=== PATIENT | male | born 1990 | race African-American/Black ===

== ENCOUNTER 2017-04-17 18:01 | Emergency (ER) | payer BC, OTHER ==
[2017-04-17] MEDS ORDERED: ONDANSETRON 4 MG TAB.RAPDIS PO ONE (20:25)
[2017-04-17] MEDS ORDERED: ACETAMINOPHEN 325 MG TABLET PO ONE (20:25)
--- NOTE | 2017-04-17 20:29 | ER Document Report ---
ED Medical Screen (RME) - General Chief Complaint: Fainting Stated Complaint: NAUSEA/DIZZY Time Seen by Provider: 04/17/17 20:24 Notes: 26 year old obese male comes emergency department for chief complaint of passing out last night and hitting his head, he states afterwards he drinks 2 beers, smokes marijuana, but could not get a ride until now. She reports headache, dizziness, denies focal numbness or weakness, denies neck pain, denies incontinence. He has no diagnosed medical history. TRAVEL OUTSIDE OF THE [place] IN LAST 30 DAYS: No - Related Data Allergies/Adverse Reactions: No Known Allergies Allergy (Verified 04/17/17 18:39) Past Medical History - Social History Chew tobacco use (# tins/day): No Frequency of alcohol use: yesterday Drug Abuse: Marijuana Renal/ Medical History: Denies: Hx Peritoneal Dialysis Surgical Hx: Negative - Immunizations Immunizations up to date: No Hx Diphtheria, Pertussis, Tetanus Vaccination: Yes Physical Exam - Vital signs Vitals: Temp Pulse Resp BP Pulse Ox 98.0 F 98 20 170/100 H 97 04/17/17 18:40 04/17/17 18:40 04/17/17 18:40 04/17/17 18:40 04/17/17 18:40 Course - Re-evaluation Re-evalutation: Morbidly obese male, hypertensive, reported head injury with alcohol use and headache with dizziness, does not have any focal neurological deficits on examination. He reports he currently feels nauseated. - Vital Signs Vital signs: Temp Pulse Resp BP Pulse Ox 98.0 F 98 20 170/100 H 97 04/17/17 18:40 04/17/17 18:40 04/17/17 18:40 04/17/17 18:40 04/17/17 18:40
[2017-04-17 21:16] LABS: ABSOLUTE EOSINOPHILS # (AUTO) 0.2 10^3/uL (0.0-0.6); ABSOLUTE LYMPHOCYTES (AUTO) 2.7 10^3/uL (0.5-4.7); ABSOLUTE MONOCYTES (AUTO) 0.6 10^3/uL (0.1-1.4); ABSOLUTE NEUT (AUTO) 4.7 10^3/uL (1.7-8.2); BASOPHILS % (AUTO) 0.5 % (0-2); EOSINOPHILS % (AUTO) 2.7 % (0-6); HEMATOCRIT 43.5 % (37.9-51.0); HEMOGLOBIN 14.2 g/dL (13.5-17.0); HGB HCT DIFFERENCE -0.9; LYMPHOCYTES % (AUTO) 32.5 % (13-45); MEAN CORPUSCULAR HGB CONC 32.6 g/dL (32.0-36.0); MEAN CORPUSCULAR VOLUME 86 fl (80-97); MONOCYTES % (AUTO) 7.3 % (3-13); RED BLOOD COUNT 5.06 10^6/uL (4.35-5.55); RED CELL DISTRIBUTION WIDTH 14.4 % (11.5-14.0); WHITE BLOOD COUNT 8.3 10^3/uL (4.0-10.5)
[2017-04-17 21:34] LABS: URINE BARBITURATES SCREEN NEGATIVE; URINE METHADONE SCREEN NEGATIVE; URINE OPIATES LOW NEGATIVE; URINE PHENCYCLIDINE SCREEN NEGATIVE
[2017-04-17 21:36] LABS: ANION GAP 14 (5-19); BLOOD UREA NITROGEN 14 mg/dL (7-20); CALCIUM 9.7 mg/dL (8.4-10.2); CARBON DIOXIDE 23 mmol/L (22-30); CHLORIDE 105 mmol/L (98-107); CREATININE RESULT 0.91 mg/dL (0.52-1.25); GLUCOSE 86 mg/dL (75-110); POTASSIUM 4.3 mmol/L (3.6-5.0); SODIUM 142.3 mmol/L (137-145)
--- NOTE | 2017-04-17 21:40 | ER Document Report ---
ED General - General Chief Complaint: Fainting Stated Complaint: NAUSEA/DIZZY Time Seen by Provider: 04/17/17 20:24 Notes: Patient is a 26-year-old morbidly obese male comes emergency department for chief complaint of passing out last night, he states that he was standing leaned up against a freezer because his lower back was aching when he passed out , he states he thinks he hit his head, confirmed by his friend, he states that afterwards he drank a couple of beers, smokes marijuana, tried to calm down. He states he could not get a ride to the hospital to be evaluated until now. Episode happened about 24 hours ago. He states he had a throbbing headache over the top of his head today, felt lightheaded, denies focal numbness or weakness, denies neck pain, denies incontinence. He states other than back spurs he does not have any diagnosed medical history, he denies any family history including hypertension, [place]. TRAVEL OUTSIDE OF THE [place] IN LAST 30 DAYS: No - Related Data Allergies/Adverse Reactions: No Known Allergies Allergy (Verified 04/17/17 18:39) Past Medical History - General Information source: Patient - Social History Smoking Status: Current Some Day Smoker Chew tobacco use (# tins/day): No Frequency of alcohol use: yesterday Drug Abuse: Marijuana Lives with: Friend Family History: Reviewed & Not Pertinent - Medical History Medical History: Negative Renal/ Medical History: Denies: Hx Peritoneal Dialysis Surgical Hx: Negative - Immunizations Immunizations up to date: No Hx Diphtheria, Pertussis, Tetanus Vaccination: Yes Review of Systems - Review of Systems Constitutional: No symptoms reported EENT: No symptoms reported Cardiovascular: No symptoms reported Respiratory: No symptoms reported Gastrointestinal: No symptoms reported Genitourinary: No symptoms reported Male Genitourinary: No symptoms reported Musculoskeletal: See HPI Skin: No symptoms reported Hematologic/Lymphatic: No symptoms reported Neurological/Psychological: See HPI Physical Exam - Vital signs Vitals: Temp Pulse Resp BP Pulse Ox 98.0 F 98 20 170/100 H 97 04/17/17 18:40 04/17/17 18:40 04/17/17 18:40 04/17/17 18:40 04/17/17 18:40 Interpretation: Normal - General General appearance: Appears well, Alert In distress: None - Patient does not appear to be in any distress; patient is tall and very large - HEENT Head: Normocephalic, Atraumatic Eyes: Normal Conjunctiva: Normal Extraocular movements intact: Yes Eyelashes: Normal Pupils: PERRL Ears: Normal Sinus: Normal Nasal: Normal Mouth/Lips: Normal Mucous membranes: Normal Pharynx: Normal Neck: Normal - Respiratory Respiratory status: No respiratory distress Chest status: Nontender Breath sounds: Normal. No: Decreased air movement, Wheezing Chest palpation: Normal - Cardiovascular Rhythm: Regular. No: Tachycardia Heart sounds: Normal auscultation, S1 appreciated, S2 appreciated Murmur: No - Abdominal Inspection: Normal Distension: No distension Bowel sounds: Normal Tenderness: Nontender. No: Tender, Guarding Organomegaly: No organomegaly - Back Back: Normal, Nontender. No: Tender, Vertebra tenderness - no cervical tenderness, normal back exam, no saddle anesthesia, normal UE and LE ROM, normal distal n/v exam - Extremities General upper extremity: Normal inspection, Nontender, Normal strength, Normal temperature General lower extremity: Normal inspection, Nontender, Normal strength, Normal temperature - Neurological Neuro grossly intact: Yes Cognition: Normal Orientation: AAOx4 [place] Coma Scale Eye Opening: Spontaneous Madhavi Coma Scale Verbal: Oriented [place] Coma Scale Motor: Obeys Commands [place] Coma Scale Total: 15 Speech: Normal Cranial nerves: Normal Cerebellar coordination: Normal Motor strength normal: LUE, RUE, LLE, RLE Additional motor exam normals: Equal photographer helper Sensory: Normal - Psychological Associated symptoms: Normal affect, Normal mood - Skin Skin Temperature: Warm Skin Moisture: Dry Skin Color: Normal Course - Re-evaluation Re-evalutation: No neurological deficits. On reexamination patient states headache is improved but not resolved after Zofran and Tylenol. CAT scan unable to be performed because table limit is 450 pounds, MRI table limit is 350 pounds. Patient is 501 pounds. Examination patient is sleeping, easily aroused, states his headache is almost completely resolved and he feels much better. CBC, chemistry unremarkable, drug screen shows the marijuana which patient already spoke of and no other abnormalities. EKG with no T-wave inversions in consecutive leads, ST segment changes, arrhythmia, or other acute abnormality noted. Manual blood pressure rechecked, blood pressure trending down into the 120s over 80s. Headache has resolved. Patient states he has never been told his blood pressure was elevated and he has never required treatment for this. Because of patient's symptoms of syncope, morbid obesity, and syncope within the past month in addition to this, I recommended patient have an echocardiogram with close follow-up with cardiology, patient states that he has insurance and he will follow-up with the referral, patient also referred to primary care for management and monitoring of his blood pressure, also discussed return precautions in detail including return of headache, chest pain , passing out, or any other concerning symptoms. Patient states understanding and agreement. Patient was discussed with Dr. Greene. - Vital Signs Vital signs: Temp Pulse Resp BP Pulse Ox 97.9 F 98 17 128/92 H 99 04/18/17 02:47 04/17/17 18:40 04/18/17 02:00 04/18/17 01:30 04/18/17 02:00 - Laboratory Result Diagrams: 04/17/17 20:50 04/17/17 20:50 Laboratory results interpreted by me: 04/17/17 20:50 RDW 14.4 H Discharge - Discharge Clinical Impression: Headache Qualifiers: Headache type: unspecified Headache chronicity pattern: acute headache Intractability: not intractable Qualified Code(s): R51 - Headache Syncopal episodes Qualifiers: Syncope type: unspecified Qualified Code(s): R55 - Syncope and collapse Condition: Stable Disposition: HOME, SELF-CARE Additional Instructions: Workup and evaluation today does not show any concerning abnormality, however because of your symptoms you may need an echocardiogram. Begin watching foods and exercise to start losing weight. Please call the cardiology referral (Dr. Howard) in the morning to set this up. Also follow up with the Primary Care referral. Return to the ED for any concerning or worsening symptoms - chest pain, shortness of breath, returned or worsening headache, or any other concerning symptoms. Forms: Return to Work Referrals: RHIANNON HOWARD MD [ACTIVE STAFF] - Follow up tomorrow SENA BAUGH MD [ACTIVE STAFF] - Follow up in 1 week
[2017-04-17] MEDS ORDERED: DIPHENHYDRAMINE HCL 50 MG/ML VIAL IV ONE (22:31)
[2017-04-18 01:40] VITALS: BP 128/92
--- NOTE | 2017-04-18 08:56 | EKG REPORT ---
SEVERITY:- BORDERLINE ECG - SINUS RHYTHM BORDERLINE T ABNORMALITIES, DIFFUSE LEADS : Confirmed by: Elie Bailey MD 18-Apr-2017 08:55:30
== END 2017-04-18 02:45 | disposition home or self-care (01) ==
LOC: ER 18:01
DX: R55 Syncope and collapse (principal); R51 Headache; R11.0 Nausea; R42 Dizziness and giddiness; F17.200 Nicotine dependence, unspecified, uncomplicated
CPT/HCPCS: 93005; 99284; 96374; 36415; 85025; 80048; 80307; 93010; J1200; S0119

== ENCOUNTER 2017-11-22 14:53 | Emergency (ER) | payer SELFPAY ==
[2017-11-22] MEDS ORDERED: PSEUDOEPHEDRINE HCL 3 MG/1 ML SYRUP 60 ML PO ONE (15:50)
[2017-11-22] MEDS ORDERED: ACETAMINOPHEN 325 MG TABLET PO ONE (15:50)
[2017-11-22] MEDS ORDERED: DIPHENHYDRAMINE HCL 50 MG CAPSULE PO ONE (15:50)
--- NOTE | 2017-11-22 15:50 | ER Document Report ---
HPI - HPI Patient complains to provider of: URI symptoms Pain Level: 3 Context: Patient is a 27 year old male who presents to the ED complaining of sinus drainage, sore throat and cough for one week. He states he took acetaminophen and something from [employer] store without much improvement. He admtis to sinus congestion without purulent drainage, redness or tendnerness, fever. Admits to headache that improves with acetaminophen Past Medical History - Social History Smoking Status: Current Every Day Smoker Family History: Reviewed & Not Pertinent Renal/ Medical History: Denies: Hx Peritoneal Dialysis - Immunizations Immunizations up to date: No Hx Diphtheria, Pertussis, Tetanus Vaccination: Yes Vertical Provider Document - CONSTITUTIONAL Agree With Documented VS: Yes Notes: PHYSICAL EXAM GENERAL: Alert, interacts well. HEAD: Normocephalic, atraumatic. HEENT: NCAT, pale conjunctiva, extraocular movements intact, pupils PERRL. external ear normal, no evidence of external auditory canal tenderness, blood/ drainage, cerumen impaction, TM intact without evidence of effusion, bulging, injection, MMM, Uvula midline. Airway patent. No evidence of tonsillar enlargement, peritonsillar abscess, retropharyngeal abscess. she NECK: Full range of motion. Supple. Trachea midline. LUNGS: Clear to auscultation bilaterally, no wheezes, rales, or rhonchi. No respiratory distress. HEART: Regular rate and rhythm. No murmurs, gallops, or rubs. EXTREMITIES: Moves all 4 extremities spontaneously. No edema, radial and dorsalis pedis pulses 2/4 bilaterally. No cyanosis. NEUROLOGICAL: Alert and oriented x4. Normal speech. PSYCH: Normal affect, normal mood. SKIN: Warm, dry, normal turgor. No rashes or lesions noted. - INFECTION CONTROL TRAVEL OUTSIDE OF THE [place] IN LAST 30 DAYS: No - RESPIRATORY O2 Sat by Pulse Oximetry: 99 Course - Re-evaluation Re-evalutation: 11/22/17 15:48 Presentation is most consistent with a viral upper respiratory infection. Patient is overall well appearance, vitals within normal limits, well-hydrated. Patient denies any headache, neck pain, and has no evidence of meningismus on examination. Lungs are clear bilaterally. No evidence of respiratory distress. Based on clinical exam and history, I do not suspect an acute pneumonia, meningitis, strep pharyngitis, or an acute encephalitis. No laboratory or imaging testing is indicated at this time. Will discharge patient with return precautions and followup recommendations. They are in agreement this plan have verbalized understanding return precautions. - Vital Signs Vital signs: Temp Pulse Resp BP Pulse Ox 98.0 F 79 20 145/83 H 99 11/22/17 15:08 11/22/17 15:08 11/22/17 15:08 11/22/17 15:08 11/22/17 15:08 Discharge - Discharge Clinical Impression: Post-nasal drip Condition: Good Disposition: HOME, SELF-CARE Instructions: Upper Respiratory Illness ([facility]) Additional Instructions: Medications that will be helpful [id number] include but are not limited to Claritin or Zyrtec or Day. This will help dry up the nasal secretions that are causing her sore throat and cough. Regarding congestion you can purchase pseudoephedrine or phenylephrine which is a decongestant. These are all available [id number] at your local pharmacy. Forms: Elevated Blood Pressure, Smoking Cessation Education, Return to Work
[2017-11-22 16:06] VITALS: BP 141/100
[2017-11-22] MEDS ORDERED: PSEUDOEPHEDRINE HCL 30 MG TABLET PO ONE (16:16)
== END 2017-11-22 16:24 | disposition home or self-care (01) ==
LOC: ER 14:53
DX: R09.82 Postnasal drip (principal); R09.89 Other specified symptoms and signs involving the circulatory and respiratory systems; J02.9 Acute pharyngitis, unspecified; R05 Cough; R09.81 Nasal congestion; R51 Headache; F17.200 Nicotine dependence, unspecified, uncomplicated
CPT/HCPCS: 99283; J3490